=== PATIENT | female | born 1960 | race Caucasian/White ===

== ENCOUNTER 2017-02-07 07:10 | Day surgery (SDC) | payer OTHER ==
[2017-02-05 17:37] LABS: BASOPHILS 0.5 %; BASOPHILS ABSOLUTE 0.03 10/3/uL (0.0-0.16); EOSINOPHILS 5.8 %; EOSINOPHILS ABSOLUTE 0.32 10/3/uL (0.0-0.53); HEMATOCRIT 40.2 % (36.0-48.0); HEMOGLOBIN 13.8 g/dL (12.0-16.0); IMMATURE GRANULOCYTES 0.2 %; IMMATURE GRANULOCYTES ABSOLUTE 0.01 10/3/uL (0.0-0.11); LYMPHOCYTES 30.6 %; LYMPHOCYTES ABSOLUTE 1.69 10/3/uL (0.67-4.30); MEAN CORPUS HGB CONC 34.3 g/dL (32.0-36.0); MEAN CORPUSCULAR HEMOGLOB 31.2 pg (26.0-34.0); MEAN PLATELET VOLUME 9.8 fL (9.2-13.0); MONOCYTES 7.4 %; MONOCYTES ABSOLUTE 0.41 10/3/uL (0.21-1.20); NEUTROPHILS 55.5 %; NEUTROPHILS ABSOLUTE 3.07 10/3/uL (2.02-8.40); PLATELET COUNT 205 10/3/uL (150-400); RBC DISTRIBUTION WIDTH 12.5 % (12.0-16.0); RED CELL COUNT 4.42 10/6/uL (4.0-5.6)
[2017-02-05 17:38] LABS: MANUAL DIFF NO %; WHITE BLOOD CELLS 5.5 10/3/uL (4.5-10.5)
[2017-02-05 17:59] LABS: A/G RATIO 1.1 (0.7-1.9); CALCIUM, SERUM 9.5 MG/DL (8.5-10.4); CHLORIDE, SERUM 105 MMOL/L (96-112); CO2 (CARBON DIOXIDE) 29 MMOL/L (24-34); CREATININE 0.84 MG/DL (0.55-1.02); GFR AFRICAN AMERICAN 89 ML/MIN (>=60); GFR NON AFRICAN AMERICAN 77 ML/MIN (>=60); GLOBULIN 3.8 G/DL (2.5-4.1); GLUCOSE, SERUM 81 MG/DL (60-99); SGOT(AST) 18 U/L (5-40); SGPT(ALT) 28 U/L (5-65); SODIUM, SERUM 142 MMOL/L (135-148); TOTAL BILIRUBIN 0.4 MG/DL (0-1.2); TOTAL PROTEIN 7.8 G/DL (6.0-8.5)
[2017-02-05 18:08] LABS: ALKALINE PHOSPHATASE 86 U/L (45-117); BUN (BLOOD UREA NITROGEN) 8 MG/DL (6-23)
--- NOTE | ~2017-02-07 | OP ---
Record Of Operation [facility] [address] [place]. [address] NAME: TERESITA PRADO : 56 STATUS : [facility]#: [id number] AGE: 56 ADM/REG DATE : 02/07/17 MR#: [id number] REPORT SERV DATE: 02/10/17 DICTATED BY: SYLVIA WOODY DATE: 02/10/17 REPORT STATUS : Draft TRANSCRIBED BY: MODL DATE: 02/10/17 DATE OF PROCEDURE: 02/07/2017 PREOPERATIVE DIAGNOSIS: Invasive ductal cell carcinoma right breast. POSTOPERATIVE DIAGNOSIS: Invasive ductal cell carcinoma right breast. PROCEDURE: Right axillary sentinel lymph node biopsy and a wire-directed right breast lumpectomy. SURGEON: Sylvia Woody M.D. ANESTHESIA: General laryngeal mask. ESTIMATED BLOOD LOSS: Nil. FLUIDS: Crystalloid. SPECIMEN: Labeled right axillary lymph node and mammographic right breast lesion. DRAINS: None. COMPLICATIONS: None. CONDITION: Good. INDICATIONS: Ms Prado is a 56-year-old who on routine screening imaging was found to have an asymmetric density upper outer right breast. Ultrasonography revealed an intermediate risk of lesion 6-8 mm diameter. Breasts are otherwise very thoroughly evaluated without identifiable abnormality. Needle biopsy of the abnormality in the upper outer right breast reveals a low-grade invasive ductal carcinoma, ER/CA positive, HER2 negative, low growth index of about 10%. There is no family history of breast or ovarian cancer. After thorough review of the treatment options, the patient would like to pursue breast conservation. We are therefore proceeding with a sentinel node biopsy for staging and a guidewire-directed lumpectomy as the lesion is not palpable. PROCEDURE IN DETAIL: After being identified in preop holding, Ms Prado was brought to operating room, positioned supine. General laryngeal mask anesthesia was induced. Right arm was extended on support board. Right breast, chest, axilla, upper extremity, and neck were prepped and draped sterilely. She had undergone a lymphoscintigram that revealed drainage to an isolated lymph node in the right axilla. She has undergone a guidewire placement that showed the guidewire traversing the lesion and extending about a centimeter beyond. In evaluating, the guidewire exited the lateral posterior right breast, coursed medial and superior. We surveyed the axilla with Neoprobe and identified a very focal point of activity in the low anterior axilla. I have the counts recorded but are not with me at the time of this dictation. There was a very focal point of activity and this was marked Record Of Operation [facility] [address] [place]. [address] NAME: TERESITA PRADO : 56 STATUS : [facility] PAT#: [id number] AGE: 56 ADM/REG DATE : 02/07/17 MR#: [id number] REPORT SERV DATE: 02/10/17 DICTATED BY: SYLVIA WOODY DATE: 02/10/17 REPORT STATUS : Draft TRANSCRIBED BY: MODL DATE: 02/10/17 with a marking pen. We made a transverse incision at the marked area dissected through the subcutaneous tissue and entered the axilla proper. There was a very focal degree of activity. We dissected and identified a single lymph node that was perhaps 5 mm, this was dissected with electrocautery. Ex vivo had a very high counts. This was labeled and sent as sentinel node #1. We resurveyed the axilla. There was no focal residual activity anywhere. Palpated the axilla through the incision, there was no palpable adenopathy. In light of the rather small size of the lesion and favorable features, I did not feel that it was of patient benefit to do an additional node dissection or sampling. We broadly infiltrated with 0.25% Marcaine with epinephrine, closed the subcutaneous with layers of running 3-0 Vicryl, closed the dermis with Monocryl. In evaluating the mammograms of guidewire placement of the right breast as well as the guidewire course, it appeared to me that the most satisfactory approach was going to be to make a transverse incision cephalad before the guidewire exited the breast. We dissected about a centimeter of the subcutaneous tissues, then dissected inferior until we encountered the guidewire, which was brought up into the operative field. Again, the course was very clearly superior and medial. I dissected the cylinder of tissue around the guidewire with a 2-3 cm radius down to the subcutaneous fat layer overlying the pectoral muscle. We came across deeply and guidewire was taken in its entirety. Orienting sutures were placed. Specimen was sent for specimen mammogram. Palpated the breast through the incision. There was no palpable abnormality. I now broadly infiltrated with 0.25% Marcaine with epinephrine, closed the subcutaneous layer with 2 layers of running 3-0 Vicryl, closed the dermis with 4-0 Monocryl. Applied Steri-Strips to both incisions followed by sterile occlusive dressing. Specimen mammogram returned the lesion with a mammographic marker appeared to be nicely centered within her lumpectomy specimen. Sterile dressings were applied. Ms Prado was recovered from anesthetic, extubated, transported to recovery room in good and stable condition having tolerated the procedure well. WILBERT/VITALY Sylvia Woody M.D. / [id number] CC: Lucy Ocampo M.D.
[~2017-02-07 07:10] MED LIST: *DENIES
== END 2017-02-07 15:40 | disposition home or self-care (01) ==
LOC: SDC 07:10
PROVIDERS: Surgery
PROC: 07B50ZX Excision of Right Axillary Lymphatic, Open Approach, Diagnostic (ICD-10-PCS; 2017-02-07)
PROC: 0HBT0ZZ Excision of Right Breast, Open Approach (ICD-10-PCS; principal; 2017-02-07 10:45)
DX: C50.411 Malignant neoplasm of upper-outer quadrant of right female breast (principal); Z17.0 Estrogen receptor positive status [ER+]; Z87.442 Personal history of urinary calculi
CPT/HCPCS: 71020; 76098; 78195; 80053; 85025; 88307; 88342; 93005; 94640; A9270-GY; A9541; J0690; J1885; J2250; J2405; J3010